=== PATIENT | male | born 1995 | race Two or more races ===

== ENCOUNTER 2020-02-21 21:13 | Emergency (ER) | payer SELFPAY ==
[2020-02-21] MEDS ORDERED: Sodium Chloride 0.9% 1,000 ML IV STA (21:34)
[2020-02-21] MEDS ORDERED: Ketorolac 30 MG/ML SDV IVPUSH ONE (21:34)
[2020-02-21] MEDS ORDERED: Ondansetron 4 MG/2 ML SDV IVPUSH ONE (21:34)
[2020-02-21] MEDS ORDERED: Sodium Chloride 0.9% 10 ML Syringe FLUSH PRN (21:36)
--- NOTE | 2020-02-21 21:56 | EDM.PDOC ---
<LoraBrett Chip - Last Filed: 02/21/20 22:41> ED HPI GENERAL MEDICAL PROBLEM - General Chief Complaint: Respiratory Problem Stated Complaint: FEVER VOMITING Time Seen by Provider: 02/21/20 21:30 - Related Data Allergies Allergy/AdvReac Type Severity Reaction Status Date / Time No Known Allergies Allergy Verified 02/21/20 21:26 Home Meds: Home Meds Ondansetron [Zofran ODT] 4 mg PO Q6H PRN #10 tab.dis 02/21/20 [Rx] Course - Re-Assessments/Exams Free Text/Narrative Re-Assessment/Exam: 02/21/20 22:41 The patient's swab for the SARS-CoV-2 virus has returned positive. Unfortunately, the patient does not meet any inclusion criterion for treatment with either bamlanivimab or Remdesivir. Departure - Departure Time of Disposition: 22:45 Disposition: Home, Self-Care 01 Clinical Impression: COVID-19 - Discharge Information Prescriptions: Ondansetron [Zofran ODT] 4 mg PO Q6H PRN #10 tab.dis PRN Reason: Nausea/Vomiting Instructions: COVID-19 Referrals: PCP,None [Primary Care Provider] - Forms: ED Department Discharge Additional Instructions: You were seen in the emergency department today for 1 week history of fever, chills, body aches, headache, nausea, vomiting, diarrhea, and a mild cough. Wor k-up included blood work, chest x-ray, and a COVID test. Your blood work was found to be normal as was your chest x-ray. Results of your COVID test was positive, meaning that you have COVID-19. A prescription for Zofran for nausea has been sent to [facility]. Uses medication as prescribed. Recommend increased fluid intake as tolerated. You may continue to use Tylenol and ibuprofen as needed for fever and discomfort. If you experience any new or worsening symptoms of concern, please not hesitate to return to the ER for reevaluation. <Yudith Denson - Last Filed: 02/24/20 11:13> ED HPI GENERAL MEDICAL PROBLEM - General Source of Information: Reports: Patient, RN Notes Reviewed History Limitations: Reports: No Limitations - History of Present Illness INITIAL COMMENTS - FREE TEXT/NARRATIVE: Patient is a 24-year-old male presenting to the emergency department with complaints of a 1 week history of illness. He states on [place], he was exposed to his [id number] who ended up being Covid positive. 1 week ago, he developed body aches, fever, and excruciating headache. The headache resolved about 3 days ago, however since then he has been having nausea, vomiting, diarrhea, as well as continue to have fever and body aches. He has not been Covid tested. His also had some mild respiratory symptoms earlier this week. He does have a mild cough but denies any shortness of breath. He does have episodes of dizziness. Patient has no chronic medical conditions. He took Tylenol about 730 this evening. Treatments EPIDEMIOLOGY INVESTIGATOR: Reports: Other (see below) Other Treatments EPIDEMIOLOGY INVESTIGATOR: tylenol Generalized Pain Score (Numeric/FACES): 10 Past Medical History - Past Health History Medical/Surgical History: Denies Medical/Surgical History Social & Family History - Tobacco Use Tobacco Use Status *Q: Never Tobacco User - Caffeine Use Caffeine Use: Reports: Coffee, Energy Drinks, Soda, Tea - Recreational Drug Use Recreational Drug Use: No ED ROS GENERAL - Review of Systems Review Of Systems: See Below Constitutional: Reports: Fever, Chills, Fatigue, Decreased Appetite HEENT: Reports: No Symptoms Respiratory: Reports: Cough. Denies: Shortness of Breath Cardiovascular: Reports: No Symptoms Endocrine: Reports: No Symptoms GI/Abdominal: Reports: Diarrhea, Nausea, Vomiting. Denies: Abdominal Pain : Reports: No Symptoms Musculoskeletal: Reports: Other (Generalized body aches) Skin: Reports: No Symptoms Neurological: Reports: Dizziness, Headache Psychiatric: Reports: No Symptoms Hematologic/Lymphatic: Reports: No Symptoms Immunologic: Reports: No Symptoms ED EXAM, GENERAL - Physical Exam Exam: See Below Exam Limited By: No Limitations General Appearance: Alert, WD/WN, No Apparent Distress Respiratory/Chest: No Respiratory Distress, Lungs Clear, Normal Breath Sounds, No Accessory Muscle Use, Chest Non-Tender Cardiovascular: Normal Peripheral Pulses, Regular Rate, Rhythm, No Edema, No Gallop, No JVD, No Murmur, No Rub GI/Abdominal: Normal Bowel Sounds, Soft, Non-Tender, No Organomegaly, No Distention, No Abnormal Bruit, No Mass Neurological: Alert, Oriented, CN II-XII Intact, Normal Cognition, Normal Gait, Normal Reflexes, No Motor/Sensory Deficits Psychiatric: Normal Affect, Normal Mood Skin Exam: Warm, Dry, Intact, Normal Color, No Rash Course - Vital Signs Last Recorded V/S: Last Vital Signs Temp 98.0 F 02/21/20 21:30 Pulse 87 02/21/20 21:30 Resp 20 02/21/20 21:30 BP 138/69 02/21/20 21:30 Pulse Ox 95 02/21/20 21:30 - Orders/Labs/Meds Labs: Laboratory Tests 02/21/20 02/21/20 02/21/20 Range/Units 21:50 21:50 21:52 WBC 4.19 L (4.23-9.07) K/mm3 RBC 5.34 (4.63-6.08) M/mm3 Hgb 15.0 (13.7-17.5) gm/dl Hct 45.5 (40.1-51.0) % MCV 85.2 (79.0-92.2) fl MCH 28.1 (25.7-32.2) pg MCHC 33.0 (32.2-35.5) g/dl RDW Std Deviation 40.6 (35.1-43.9) fL Plt Count 161 L (163-337) K/mm3 MPV 11.1 (9.4-12.3) fl Neut % (Auto) 58.4 (34.0-67.9) % Lymph % (Auto) 30.5 (21.8-53.1) % [place] % (Auto) 10.7 (5.3-12.2) % Eos % (Auto) 0 L (0.8-7.0) Baso % (Auto) 0.2 (0.1-1.2) % Neut # (Auto) 2.44 (1.78-5.38) K/mm3 Lymph # (Auto) 1.28 L (1.32-3.57) K/mm3 [place] # (Auto) 0.45 (0.30-0.82) K/mm3 Eos # (Auto) 0.00 L (0.04-0.54) K/mm3 Baso # (Auto) 0.01 (0.01-0.08) K/mm3 Sodium 137 (136-145) mEq/L Potassium 3.5 (3.5-5.1) mEq/L Chloride 99 (98-107) mEq/L Carbon Dioxide 26 (21-32) mEq/L Anion Gap 15.5 H (5-15) BUN 18 (7-18) mg/dL Creatinine 0.9 (0.7-1.3) mg/dL Est Cr Clr Drug Dosing 130.68 mL/min Estimated GFR (MDRD) > 60 (>60) mL/min BUN/Creatinine Ratio 20.0 H (14-18) Glucose 114 H (74-106) mg/dL Calcium 8.3 L (8.5-10.1) mg/dL Magnesium 2.0 (1.8-2.4) mg/dl Total Bilirubin 0.8 (0.2-1.0) mg/dL AST 24 (15-37) U/L ALT 30 (16-63) U/L Alkaline Phosphatase 60 (46-116) U/L C-Reactive Protein 5.3 H* (<1.0) mg/dL Total Protein 7.7 (6.4-8.2) g/dl Albumin 3.7 (3.4-5.0) g/dl Globulin 4.0 gm/dL Albumin/Globulin Ratio 0.9 L (1-2) SARS-CoV-2 RNA (DIANE) Positive H (NEGATIVE) Meds: Medications Discontinued Medications Generic Name Dose Route Start Last Admin Trade Name Freq PRN Reason Stop Dose Admin Sodium Chloride 1,000 mls @ 999 mls/hr 02/21/20 21:34 02/21/20 22:00 Normal Saline IV 02/21/20 22:34 999 mls/hr NOW STA Administration Ketorolac Tromethamine 30 mg 02/21/20 21:34 02/21/20 22:00 Toradol IVPUSH 02/21/20 21:35 30 mg ONETIME ONE Administration Ondansetron HCl 4 mg 02/21/20 21:34 02/21/20 22:01 Zofran IVPUSH 02/21/20 21:35 4 mg ONETIME ONE Administration Sodium Chloride 10 ml 02/21/20 21:36 02/21/20 22:01 Saline Flush FLUSH 10 ml ASDIRECTED PRN Administration Keep Vein Open - Re-Assessments/Exams Free Text/Narrative Re-Assessment/Exam: Patient is a 24-year-old male presenting to the emergency department with complaints of a 1 week history of illness. He describes symptoms of body aches, fever, chills, headache, nausea, vomiting, slight cough, and dizziness. He has a known Covid exposure 10 days ago. Based on patient's symptoms, I feel it is highly likely that he is suffering from Covid. His vital signs are stable. He is not tachycardic or tachypneic. He is afebrile. I have ordered a 1 L bolus of normal saline as well as Zofran 4 mg IV, and Toradol 30 mg IV. We will complete baseline labs including CBC, CMP, magnesium, CRP, mostly to look for electrolyte abnormalities. Also ordered a 1 view chest x-ray. We will complete a [facility] coronavirus test. 02/21/20 21:58 I was notified by Janet PARMAR, the patient was swabbed with a 1 hour Covid test as opposed to the pelvic outlet. I have changed the order to the 1 hour Covid. 02/21/20 22:31 Hematology was significant for CRP minimally elevated at 5.13. WBCs were low suggestive of likely viral infection. Chest x-ray showed no acute abnormalities. Patient is feeling better after the Toradol and Zofran. He still has about half the bag of IV fluids available. Results are pending. I have sent an RX for Zofran to [facility]. Case discussed with Dr. Paluino. He will assume care and disposition of pt. Departure - Departure Condition: Good - Discharge Information *PRESCRIPTION DRUG MONITORING PROGRAM REVIEWED*: No *COPY OF PRESCRIPTION DRUG MONITORING REPORT IN PATIENT CANDELARIA: No Sepsis Event Note (ED) - Evaluation Sepsis Screening Result: No Definite Risk
--- NOTE | 2020-02-22 08:47 | CR ---
Chest: Portable upright view of the abdomen was obtained. Comparison: No previous study. Heart size and mediastinum are normal. Slight increased density within the left lung base is seen. Lungs otherwise are clear. Bony structures are grossly intact. Impression: 1. Findings suspicious for mild left lower lobe pneumonia. Diagnostic code #3
== END 2020-02-21 23:15 | disposition home or self-care (01) ==
LOC: JD.ED 21:13
DX: U07.1 COVID-19 (principal)
CPT/HCPCS: 36415; 71045; 80053; 83735; 85025; 86140; 87635; 96374; 96375; 99284; J1885; J2405; J7030; 99283; U0002